=== PATIENT | male | born 1970 | race African-American/Black ===

== ENCOUNTER 2017-04-10 11:00 | Inpatient (IN) | payer MEDICARE ==
[~2017-04-10] VITALS: Ht 188 cm; Wt 127.0 kg
--- NOTE | ~2017-04-10 | HP ---
Unit #: [id number] #: [id number] Patient: RAMIRO MURO [id number] [place] [address] [id number] I MR#: [id number] NAME: RAMIRO MURO. ROOM: P114 Age: 46 Sex: M Admission Date: 04/10/2017 : 1970 Attending Physician: Neisha Mackenzie M.D. Admitting Physician: Neisha Mackenzie M.D. Primary Care Physician: Primary Care Physician No HISTORY AND PHYSICAL HISTORY OF PRESENT ILLNESS Ramiro is a 46-year-old male admitted on 04/10/[address] [place] [address] for psychosis. PAST MEDICAL HISTORY Denies. PAST SURGICAL HISTORY Left below knee amputation. He is unable to tell me why this was done. ALLERGIES None. SOCIAL HISTORY Occasional cigarettes use. Denies alcohol or illegal drug use. FAMILY HISTORY Noncontributory. REVIEW OF SYSTEMS CONSTITUTIONAL: No fever or chills. HEENT: Denies any sore throat, ear pain or runny nose. CARDIOVASCULAR: Denies chest pain, irregular heart rhythm or palpitations. CHEST: Denies shortness of breath or cough. No hemoptysis. GASTROINTESTINAL: Denies nausea, vomiting, diarrhea or chronic constipation. ENDOCRINE: Denies history of increased thirst or urination. No recent significant weight loss or gain. GENITOURINARY: Denies dysuria, frequency, or hematuria. SKIN: Denies any rashes. HEMATOLOGIC: Denies history of increased bleeding or bruising. MUSCULOSKELETAL: Denies any hot, swollen joints. No generalized muscle pain. NEUROLOGIC: Denies problems with vision or speech. No frequent, severe headaches. No numbness, tingling or weakness in any extremities. Denies loss of bladder or bowel control. CURRENT MEDICATIONS None. PHYSICAL EXAMINATION GENERAL: Alert, oriented, in no acute distress. HEIGHT: 6 feet 2. Unit #: [id number] #: [id number] Patient: RAMIRO MURO WEIGHT: 280 pounds. SKIN: Warm and dry without rash or lesion. HEENT: Normocephalic. TMs not viewed. Oral and nasal passages clear. Conjunctivae clear. PERRLA. EOMs intact. NECK: Supple without lymphadenopathy or thyromegaly. HEART: Regular rate and rhythm without murmur. LUNGS: Clear. ABDOMEN: Soft, nontender, without masses or hepatosplenomegaly. : Not done. EXTREMITIES: No evidence of cyanosis, clubbing or edema. Moves all without focal deficit. NEUROLOGICAL: Grossly within normal limits. Cranial Nerves: II: Visual hernandez are intact. III, IV AND : Extraocular movements are intact. Pupils are equal, round and reactive to light. V: Facial sensation is grossly normal. VII: Facial movements and expression are normal. VIII: Auditory acuity grossly intact. IX, X: Uvula is midline. Phonation is normal. XI: Patient shrugs shoulders and turns head normally. XII: Tongue protrudes in the midline. Sensory and Motor Function: Sensory and motor sensation is grossly normal. Motor: moves all extremities well. Coordination: Gait is normal. Deep Tendon Reflexes: Intact. IMPRESSION Psychiatric admission. RECOMMENDATIONS PSYCHIATRIC: Per psychiatrist. MEDICAL: No contraindication to participate in facility's activities. MEDICAL PROGNOSIS Good. MEDICAL CONDITION Stable. Dictated by... Mehdi Tsai/north TD: 04/10/2017 21:27 JOB #: [id number] HISTORY AND PHYSICAL Page 1 of 1 X SAM GARCIA APRN HISTORY AND PHYSICAL
--- NOTE | ~2017-04-10 | PA ---
Unit #: [id number] #: [id number] Patient: ASAF TUCKER [id number] [facility] [address] [place] [address] [id number] I MR#: [id number] NAME: ASAF TUCKER. ROOM: P114 Age: 46 Sex: M Admission Date: 04/10/2017 : 1970 Date of Assessment: 04/10/2017 Attending Physician: Neisha Mackenzie M.D. Admitting Physician: Neisha Mackenzie M.D. Primary Care Physician: Primary Care Physician No PSYCHIATRIC ASSESSMENT DATE OF SERVICE 04/10/2017. IDENTIFYING DATA Mr. Tucker is a 46-year-old single, disabled, male, who is a resident of [place], [place], and was brought to the hospital by police after being picked up. CHIEF COMPLAINT "I was just picked up." HISTORY OF PRESENT ILLNESS A 46-year-old male, who was brought to the hospital by police after being picked up as the patient was walking into businesses and refusing to leave and officer reports that the patient has family's support, but they are in another state at the moment and the patient was observed to exhibit bizarre behavior and erratic conversation and refused to participate in initial assessment. The patient asked clinician to help find a facility that he has been sleeping at, so that he can get some rest and the patient was observed taking off his pants in the waiting area in front of the visitors and other patients and reports that he took off his pants because they were dirty and the patient refused to comply with the clinician or to put his pants on and officer reports that they responded a call of this stranger which was getting into businesses and refusing to leave and officer reports that he had a concern for the safety because of his mental health and his unstable gait and officer reports that he is familiar with the patient and that he has long history of chronic mental illness and felt that he needed help and therefore, he was brought to the hospital. He was seen to be acutely psychotic in the admissions and was directly admitted to the unit as he was even unable to complete initial assessment. SUBSTANCE ABUSE HISTORY The patient does not have any history of alcohol or drug abuse. PAST PSYCHIATRIC HISTORY The patient has had history of inpatient psychiatric hospitalization. Review of the medical records indicate that he has been diagnosed and treated for schizophrenia, but has been noncompliant with medication and as such, has been decompensating. PAST MEDICAL HISTORY No acute or chronic medical illnesses. Unit #: [id number] #: [id number] Patient: ASAF TUCKER ALLERGIES No known medication allergies. CURRENT MEDICATIONS None. PERSONAL AND SOCIAL HISTORY A 46-year-old male, who apparently is single, disabled, and homeless, and he has a support system from the family, but that they are in another state. MENTAL STATUS EXAMINATION Middle-aged male who was casually dressed with fair personal hygiene, appears to be in no acute distress or discomfort. He was awake and alert with impaired attention and concentration. His mood was anxious and depressed with a congruent affect. His speech was slow and restricted in content. His thought processes were disorganized with some looseness of associations and flight of ideas and paranoid ideations and delusional behavior. His insight and judgment remain significantly impaired. DIAGNOSTIC IMPRESSION Psychiatric: Chronic paranoid schizophrenia by history. Medical: None. Stressors: Moderate psychosocial stressors. TREATMENT PLAN 1. The patient has presented with history of mood disorder and psychosis and has been decompensating and will need inpatient hospitalization for safety and stabilization. We will start him back on his home medications. We will adjust the medications and monitor response. 2. Supportive therapy was provided to the patient. 3. Safe, structured, and nourishing environment will be provided. ESTIMATED LENGTH OF STAY 5 to 7 days. ABILITY TO HELP SELF Limited. WILLINGNESS TO HELP SELF The patient appears to be willing to help self. STRENGTHS 1. Communicative. 2. Cooperative. PROBLEMS 1. Chronic dysphoric symptoms. 2. Poor social support system. DISCHARGE CRITERIA This will be contingent upon the patient's ability to show resolution of his depression and anxiety, as well as his ability to stay safe to himself, particularly after discharge from the hospital. Dictated by... Unit #: [id number] #: [id number] Patient: ASAF TUCKER Roz Sahu/stephon TD: 04/11/2017 08:13 JOB #: [id number] PSYCHIATRIC ASSESSMENT Page 1 of 1 X Neisha Mackenzie MD PSYCHIATRIC ASSESSMENT
--- NOTE | ~2017-04-10 | PN ---
Unit #: [id number] #: [id number] Patient: ASAF TUCKER [id number] [facility] [address] [place] [address] [id number] I MR#: [id number] NAME: ASAF TUCKER. ROOM: P114 Age: 46 Sex: M Admission Date: 04/10/2017 : 1970 Attending Physician: Neisha Mackenzie M.D. Admitting Physician: Neisha Mackenzie M.D. Primary Care Physician: Primary Care Physician No [facility] PROGRESS NOTES DATE April 11, 2017 DISCUSSION Mr. Tucker is a 46-year-old male, who was seen today and chart was reviewed and the case was discussed with the staff. He has been agitated, irritable, been roaming around in the wheelchair, he has been loud and singing at the top of his lungs, causing chaos and disturbing the other patients and trying to shut their doors and others are cursing at home and telling me to "shut up." He has been out of touch with reality and he has not been following any directions. MENTAL STATUS EXAMINATION Middle-aged male, who was casually dressed with fair personal hygiene and appears to be in no acute distress or discomfort. He was awake and alert with impaired attention and concentration. His mood is elated with expansive affect. His speech is slow and tangential. His thought processes are disorganized with some looseness of associations and flight of ideas. His insight and judgment remain significantly impaired. TREATMENT PLAN 1. We will continue him on his current treatment protocol, and will adjust his medications and will recommend initiating mood stabilizer and antipsychotic. 2. Supportive therapy was provided to the patient. 3. We will continue to followup. Dictated by... Roz Sahu/chris TD: 04/12/2017 07:30 JOB #: [id number] Unit #: [id number] #: [id number] Patient: ASAF TUCKER [facility] PROGRESS NOTES Page 1 of 1 X Neisha Mackenzie MD X PROGRESS NOTE
--- NOTE | ~2017-04-10 | PN ---
Unit #: [id number] #: [id number] Patient: ASAF TUCKER [id number] [facility] [address] [place] [address] [id number] I MR#: [id number] NAME: ASAF TUCKER. ROOM: P114 Age: 46 Sex: M Admission Date: 04/10/2017 : 1970 Attending Physician: Neisha Mackenzie M.D. Admitting Physician: Neisha Mackenzie M.D. Primary Care Physician: Primary Care Physician Elisa STEWART PROGRESS NOTES DATE April 13, 2017 DISCUSSION Mr. Tucker is a 46-year-old male, with mood disorder, and psychosis, who was seen today and chart was reviewed and the case was discussed with the staff. Staff reports that the patient has been anxious, agitated, bizarre, and psychotic, and hostile, and has been urinating all over the place and the staff had to repeatedly clean up after him, and he has been needing constant redirection, but has been refusing to follow directions. He has been taking medications but does not appear to be making much of a response to the medications. MENTAL STATUS EXAMINATION Middle-aged male, who was casually dressed with fair personal hygiene and appears to be in no acute distress or discomfort. He was awake and alert with impaired attention and concentration. His mood is anxious with a congruent affect. His speech is slow and tangential. His thought processes are disorganized with some looseness of associations and flight of ideas. His insight and judgment remain significantly impaired. TREATMENT PLAN 1. We will continue him on his current medications and treatment protocol, and will monitor his response to the medications, and make further adjustments as needed. 2. We will continue to followup. Dictated by... Roz Sahu/chris TD: 04/15/2017 06:51 JOB #: [id number] Unit #: [id number] #: [id number] Patient: ASAF TUCKER PAT PROGRESS NOTES Page 1 of 1 X Neisha Mackenzie MD X PROGRESS NOTE
--- NOTE | ~2017-04-10 | PN ---
Unit #: [id number] #: [id number] Patient: ASAF TUCKER [id number] [facility] [address] [place] [address] [id number] I MR#: [id number] NAME: ASAF TUCKER. ROOM: P114 Age: 46 Sex: M Admission Date: 04/10/2017 : 1970 Attending Physician: Neisha Mackenzie M.D. Admitting Physician: Neisha Mackenzie M.D. Primary Care Physician: Primary Care Physician Elisa STEWART PROGRESS NOTES DATE 04/14/2017 DISCUSSION Mr. Tucker is a 46-year-old, male who was seen today and chart was reviewed and case was discussed with the staff. He has been anxious, withdrawn and rather seclusive to himself. Meanwhile, he has been cooperative with the treatment recommendations. He has been taking the medication and tolerating them fairly well with no reported side effects. MENTAL STATUS EXAM Middle-aged male who was casually dressed with fair personal hygiene, appears to be in no acute distress or discomfort. He was awake and alert with impaired attention and concentration. His mood was anxious with congruent affect. He denies any suicidal or homicidal ideation. his insight and judgement remains slightly impaired. TREATMENT PLAN 1. We will continue him on his current treatment protocol. We will monitor his response and make further adjustments as needed. 2. We will continue to follow up. Dictated by... Roz Sahu/radha TD: 04/16/2017 01:40 JOB #: [id number] Unit #: [id number] #: [id number] Patient: ASAF TUCKER PAT PROGRESS NOTES Page 1 of 1 X Neisha Mackenzie MD X PROGRESS NOTE
--- NOTE | ~2017-04-10 | PN ---
Unit #: [id number] #: [id number] Patient: ASAF TUCKER [id number] [facility] [address] [place] [address] [id number] MR#: [id number] NAME: ASAF TUCKER. ROOM: P114 Age: 46 Sex: M Admission Date: 04/10/2017 : 1970 Attending Physician: Neisha Mackenzie M.D. Admitting Physician: Neisha Mackenzie M.D. Primary Care Physician: Primary Care Physician Elisa STEWART PROGRESS NOTES DATE OF SERVICE 04/12/2017 DISCUSSION Mr. Tucker is a 46-year-old male who was seen today. Chart was reviewed and case was discussed with the staff. He has been anxious, agitated, and had a rough day yesterday with acute psychosis, withdrawn behavior, agitation, hostility, and aggression. An intramuscular injection of Haldol and Benadryl was given, and he was finally able to fall asleep and reports he was once again able to carry on much conversation though was noticed to be extremely unkempt, disheveled, with significant body odor and has been put in a blocked room, and it was difficult for me even to step into his room as he is not able to take care of his personal hygiene as at this time we will continue to monitor his response to treatment as well as medication and was just initiated yesterday. We will monitor the response and make further adjustments as needed. Dictated by... Neisha Mackenzie M.D. IAA/bzg TD: 04/13/2017 07:14 JOB #: [id number] [facility] PROGRESS NOTES Page 1 of 1 X Neisha Mackenzie MD PROGRESS NOTE
--- NOTE | ~2017-04-10 | DS ---
Unit #: [id number] #: [id number] [facility] [id number] [facility] [address] [place] [address] [id number] I MR#: [id number] NAME: ASAF TUCKER. ROOM: 14 Age: 46 Sex: M Admission Date: 04/10/2017 : 1970 Discharge Date: 04/16/2017 Attending Physician: Neisha Mackenzie M.D. Primary Care Physician: Primary Care Physician No DISCHARGE SUMMARY IDENTIFYING DATA Mr. Tucker is a 46-year-old, single, disabled, male who is a resident of [place], [place] and was brought to the hospital by police. DISCHARGE DIAGNOSES Psychiatric: Chronic paranoid schizophrenia. Medical: None. Stressors: Moderate psychosocial stressors. HISTORY OF PRESENT ILLNESS Please see initial psychiatric evaluation for details. PAST PSYCHIATRIC HISTORY Please see initial psychiatric evaluation for details. PAST MEDICAL HISTORY Please see initial psychiatric evaluation for details. HOSPITAL COURSE [facility] and was oriented to the hospital environment. Routine p.r.n. medications were initiated, and he was started on Risperdal 1 mg b.i.d. as an antipsychotic and initially was seen to be very agitated, irritable, hostile, paranoid, and delusion, but he was able to settle down and was able to show a therapeutic response to the medications with improvement in depression and psychosis, and was not seen to be a danger to self or anyone else and as such, it was decided that he will be discharged home and will continue treatment on an outpatient basis. DISCHARGE MEDICATIONS Risperdal 1 mg b.i.d. for psychosis. DISCHARGE CONDITION Stable. PROGNOSIS Fair. Dictated by... Neisha Mackenzie M.D. IAA/modl Unit #: [id number] #: [id number] Patient: ASAF TUCKER TD: 04/16/2017 16:00 JOB #: [id number] DISCHARGE SUMMARY Page 1 of 1 X Neisha Mackenzie MD X DISCHARGE SUMMARY
--- NOTE | ~2017-04-10 | PN ---
Unit #: [id number] #: [id number] Patient: ASAF TUCKER [id number] [facility] [address] [place] [address] [id number] MR#: [id number] NAME: ASAF TUCKER. ROOM: P114 Age: 46 Sex: M Admission Date: 04/10/2017 : 1970 Attending Physician: Neisha Mackenzie M.D. Admitting Physician: Neisha Macknezie M.D. Primary Care Physician: Primary Care Physician Elisa STEWART PROGRESS NOTES DATE April 15, 2017 DISCUSSION Mr. Tucker is a 46-year-old male, who was seen today and chart was reviewed and the case was discussed with the staff. He has been anxious, withdrawn, and seclusive to himself. Meanwhile, he has been cooperative with the treatment recommendations and he has been taking the medications and tolerating them fairly well with no reported side effects. MENTAL STATUS EXAMINATION Young male, who was casually dressed with fair personal hygiene and appears to be in no acute distress or discomfort. He was awake and alert with impaired attention and concentration. His mood is anxious with a congruent affect. He denies any suicidal or homicidal ideations. His insight and judgment remain slightly impaired. TREATMENT PLAN 1. We will continue him on his current medications and treatment protocol, and will monitor his response to the medications, and make further adjustments as needed. 2. We will continue to followup. Dictated by... Roz Sahu/chris TD: 04/16/2017 07:38 JOB #: [id number] Unit #: [id number] #: [id number] Patient: ASAF TUCKER PAT PROGRESS NOTES Page 1 of 1 X Neisha Mackenzie MD PROGRESS NOTE
[~2017-04-10 11:00] MED LIST: HALDOL PO; KEFLEX PO
[2017-04-13 14:16] LABS: URINE APPEARANCE CLEAR; URINE BILIRUBIN NEG (NEG); URINE BLOOD NEG (NEG); URINE COLOR YELLOW; URINE GLUCOSE NEG (NEG); URINE KETONE NEG (NEG); URINE LEUKOCYTE ESTERASE NEG (NEG); URINE NITRATE NEG (NEG); URINE PROTEIN NEG (NEG); URINE SPECIFIC GRAVITY 1.006 (1.003-1.035); URINE UROBILINOGEN 0.2 MG/DL (NEG)
[2017-04-13 14:28] LABS: AMPHETAMINE NEG (NEG); BARBITURATES NEG (NEG); BENZODIAZEPINES NEG (NEG); COCAINE NEG (NEG); MARIJUANA NEG (NEG); OPIATES NEG (NEG); TRICYCLIC ANTIDEPRESSANTS NEG (NEG); U METHADONE NEG (NEG)
== END 2017-04-16 13:45 | disposition home or self-care (01) | DRG 885 ==
LOC: P1S 13:58
PROVIDERS: Psychiatry & Neurology Psychiatry
DX: F20.0 Paranoid schizophrenia (principal); Z89.512 Acquired absence of left leg below knee; Z72.0 Tobacco use
CPT/HCPCS: 80307; 81003; J1200; J1630